=== PATIENT | female | born 1935 | race Caucasian/White ===

== ENCOUNTER 2017-05-20 05:10 | Emergency (ER) | payer MEDICARE, OTHER ==
[~2017-05-20] VITALS: Ht 157.5 cm; Wt 50.0 kg
[~2017-05-20 05:10] MED LIST: ACET-2247 PO; AMLO-511 PO; ASPI-556 PO; ATOR10TA84 PO; CLOP75 PO; DIVA500T35 PO; DOCU-119 PO; LANS30CA55 PO; LEVO50TA4 PO; MEMA10TA11 PO; MODA100 PO; MULT-29 PO
[2017-05-20] MEDS ORDERED: POTA25TA7 PO (05:24)
[2017-05-20] MEDS ORDERED: GABA-531 PO (05:24)
[2017-05-20] MEDS ORDERED: BUSP10TA23 PO (05:24)
[2017-05-20] MEDS ORDERED: AMLO-512 PO (05:24)
[2017-05-20] MEDS ORDERED: ATOR10TA84 PO (05:24)
[2017-05-20] MEDS ORDERED: LEVO50 PO (05:24)
[2017-05-20] MEDS ORDERED: QUET25TA PO (05:24)
[2017-05-20] MEDS ORDERED: FURO20 PO (05:24)
[2017-05-20 05:33] LABS: GLUCOSE,POINT OF CARE 139 MG/DL (70-110)
[2017-05-20 05:50] LABS: BASOPHILS % (AUTO) 0.5 % (0.0-2.0); EOSINOPHILS % (AUTO) 1.7 % (1.0-6.0); HEMATOCRIT 37.6 % (36-46); HEMOGLOBIN 12.5 g/dL (12.0-16.0); LYMPHOCYTES # (AUTO) 1.7 K/uL (1.0-4.8); LYMPHOCYTES % (AUTO) 12.9 % (22.0-44.0); MEAN CORPUSCULAR HEMOGLOBIN 29.7 pg (26.0-34.0); MEAN CORPUSCULAR HGB CONC 33.2 G/dL (31.0-37.0); MEAN CORPUSCULAR VOLUME 89 fL (80-100); MONOCYTES # (AUTO) 0.6 K/uL (0.1-1.0); MONOCYTES % (AUTO) 4.5 % (2.0-9.0); NEUTROPHILS # (AUTO) 10.4 K/uL (1.8-7.7); NEUTROPHILS % (AUTO) 80.4 % (40.0-70.0); RED BLOOD CELL COUNT(AUTO) 4.21 MIL/uL (4.00-5.20); RED CELL DISTRIBUTION WIDTH 14.9 % (11.5-14.5); WHITE BLOOD COUNT (AUTO) 12.9 K/uL (4.5-11.0)
[2017-05-20 05:59] LABS: INR 0.9 (0.9-1.1)
[2017-05-20] MEDS ORDERED: ASPIRIN 325 MG EC TABLET PO ONE (06:00)
[2017-05-20 06:01] LABS: ANION GAP 10 mmol/L (8-16); CALCIUM, TOTAL 9.1 mg/dL (8.8-10.5); CARBON DIOXIDE 28 mmol/L (22-29); CHLORIDE 103 mmol/L (98-107); CREATININE 1.21 mg/dL (0.60-1.30); GLOMERULAR FILTR. RATE CALC 43 mL/min (>60); POTASSIUM 3.6 mmol/L (3.5-5.1); SODIUM SERUM 141 mmol/L (136-145); UREA NITROGEN, BLOOD 16 mg/dL (7-18)
[2017-05-20 06:07] LABS: ALANINE AMINOTRANSFERASE 18 U/L (12-78); ALBUMIN 3.7 g/dL (3.4-5.0); ASPARTATE AMINOTRANSFERASE 20 U/L (15-37); BILIRUBIN,TOTAL 0.5 mg/dL (0.1-1.0); CREATINE KINASE, TOTAL 33 U/L (26-192); TOTAL PROTEIN, SERUM 7.8 g/dL (6.4-8.2)
[2017-05-20 06:09] LABS: B-TYPE NATRIURETIC PEPTIDE 29 pg/mL (0-100)
[2017-05-20 06:28] LABS: PLATELET COUNT (AUTO) 186 K/uL (150-450)
[2017-05-20 08:47] VITALS: BP 98/54
== END 2017-05-20 08:51 | disposition home or self-care (01) ==
LOC: EMS 05:12
DX: R55 Syncope and collapse (principal); I10 Essential (primary) hypertension; Z86.73 Personal history of transient ischemic attack (TIA), and cerebral infarction without residual deficits; Z88.0 Allergy status to penicillin
CPT/HCPCS: 70450; 82962; 93005; 99285